=== PATIENT | male | born 1960 | race Caucasian/White ===

== ENCOUNTER 2020-06-07 11:27 | Outpatient (CLI) | payer OTHER, SELFPAY ==
--- NOTE | ~2020-06-07 | XR_ITS ---
XR abdomen/kub 1V DATE: 06/07/2020 11:43 INDICATION: R19.8 Other specified symptoms and signs involving the digestive tract TECHNIQUE: 2 AP views COMPARISON: None FINDINGS: There is no evidence of bowel obstruction. No visceromegaly. No significant abnormal calcif ication. The psoas shadows are intact. No suspicious osteolytic or osteoblastic lesions are noted. Th e lower lung zones are clear. IMPRESSION: No significant abnormality Reviewed, dictated and finalized at [facility]. Reviewed, dictated and finalized at location B. IMPRESSION: No significant abnormality
== END 2020-06-07 11:28 | disposition home or self-care (01) ==
PROVIDERS: PCP Internal Medicine; Visit Provider Internal Medicine
DX: R19.8 Other specified symptoms and signs involving the digestive system and abdomen (principal)
CPT/HCPCS: 74018

== ENCOUNTER → 2021-06-12 14:25 | Outpatient (CLI) | payer OTHER, SELFPAY ==
--- NOTE | ~2021-06-12 | XR_ITS ---
XR foot RT min 3V DATE: 06/12/2021 14:45 INDICATION: Plantar fascial fibromatosis TECHNIQUE: 4 views COMPARISON: 11/09/2016 MR right foot FINDINGS: Mild plantar calcaneal enthesopathy. There is mild osteoarthritic arthritis at the first metatarsophalangeal joint. No fracture, dislocation, periosteal reaction or bone destruction is detected. IMPRESSION: Mild plantar calcaneal enthesopathy Mild osteoarthritis at first metatarsophalangeal joint Reviewed, dictated and finalized at location A.
--- NOTE | ~2021-06-12 | XR_ITS ---
XR foot LT min 3V DATE: 06/12/2021 14:44 INDICATION: Plantar fascial fibromatosis TECHNIQUE: 4 views COMPARISON: None FINDINGS: Plantar calcaneal enthesopathy. Second through fifth hammertoe deformities. There is mild osteoarthritis at the first metatarsophalangeal joint. No fracture, dislocation, periosteal reaction or bone destruction. IMPRESSION: Plantar calcaneal enthesopathy Mild osteoarthritis at first metatarsophalangeal joint Reviewed, dictated and finalized at location A.
== END ==
PROVIDERS: PCP Internal Medicine; Visit Provider Internal Medicine
DX: M19.071 Primary osteoarthritis, right ankle and foot (principal); M77.31 Calcaneal spur, right foot; M72.2 Plantar fascial fibromatosis
CPT/HCPCS: 73630

== ENCOUNTER 2022-02-12 09:39 | Observation (INO) | payer OTHER, SELFPAY ==
[2022-02-12] VITALS (24 sets, daily range): BP systolic 102–141; BP diastolic 58–83; PULSE 77–95; RESP 8–22; TEMP 36.2–36.9; O2SAT 98–100; BMI 33.0
[2022-02-12 10:02] LABS: Basophils Percent Auto 0.3 % (0.2-1.2); Eosinophils Percent Auto 0.1 % (0-4.4); Hemoglobin 8.4 g/dL (14.0-18.0); Immature Granulocyte Absolute 0.06 K/mm3 (0.00-0.031); Immature Granulocyte Percent A 0.5 % (0-0.5); Lymphocytes Percent Auto 17.2 % (18.3-44.2); Mean Corpuscular HGB Conc 32.3 g/dl (32-36); Mean Corpuscular Hemoglobin 32.1 pg (26-34); Mean Corpuscular Volume 99.2 fl (80-100); Mean Platelet Volume 9.5 fl (7.4-10.4); Monocytes Absolute Auto 0.9 K/mm3 (0.1-0.6); Monocytes Percent Auto 7.3 % (2.6-8.5); Neutrophils Absolute Auto 8.7 K/mm3 (1.3-6.7); Neutrophils Percent Auto 74.6 % (45.5-73.1); Platelet Count Result 276 k/mm3 (150-375); Red Blood Count 2.62 M/mm3 (4.6-6.20); Red Cell Distribution Width 16.1 % (11.5-14.5); White Blood Count 11.6 K/mm3 (4.5-10.0)
--- NOTE | 2022-02-12 10:03 | ECG_ITS ---
Measurements Intervals [place] Rate: 82 P: 71 CO: 182 QRS: -33 QRSD: 99 T: 19 QT: 357 QTc: 418 Interpretive Statements SINUS RHYTHM WITH OCCASIONAL VENTRICULAR PREMATURE COMPLEXES MARKED LEFT AXIS DEVIATION [QRS AXIS < -30] PATTERN CONSISTENT WITH PULMONARY DISEASE NONSPECIFIC T-WAVE ABNORMALITY NO PREVIOUS ECG AVAILABLE FOR COMPARISON Electronically Signed On 02-12-2022 14:01:45 CDT by Meghan Bower M.D.
--- NOTE | 2022-02-12 10:04 | ED.GIBLEED ---
HPI - GI Bleed General Chief complaint: GI Bleed Stated complaint: Black stools Time Seen by Provider: 02/12/22 09:54 Source: patient Mode of arrival: ambulatory Limitations: no limitations History of Present Illness HPI Narrative: This is a 61-year-old male that presents to the emergency department for black, tarry stools present over the last 5 days. Does report some epigastric abdominal pain that is like a pressure. He has been experiencing this for years. The pain is worse after eating. Reports a presyncopal type episode at work last night. Denies fever, vomiting, chest pain, or shortness of breath. Related Data Home Medications Medication Instructions Recorded Confirmed aspirin 81 mg tablet,delayed 81 mg PO DAILY 11/20/19 12/09/21 release Allergies Allergy/AdvReac Type Severity Reaction Status Date / Time No Known Drug Allergies Allergy Unknown Unknown Verified 12/09/21 14:14 Review of Systems Review of Systems: CONSTITUTIONAL: Denies fever CARDIOVASCULAR: Denies chest pain RESPIRATORY: Denies dyspnea. GASTROINTESTINAL: Reports abdominal pain. Denies nausea, vomiting, or diarrhea. All systems reviewed & are unremarkable except as noted in HPI and below PMFSH Past Medical History Medical History (Updated 02/12/22 @ 12:25 by Ayleen Toro PA-C) BMI 32.0-32.9,adult Enuresis Essential hypertension High intra-abdominal pressure Hyperlipidemia LDL goal <130 Insomnia Itch of skin Screen for colon cancer Surgical History Surgical History History of rotator cuff surgery Family History Family History Other Heart disease Social History Social History Smoking status: Never smoker Second hand tobacco smoke exposure: No Alcohol intake: current Exam Narrative: GENERAL: Well-appearing, well-nourished, and in no acute distress. HEAD: Normocephalic, atraumatic. EYES: EOMI. CHEST: Clear to auscultation. No respiratory distress. No wheezes rales or rhonchi HEART: Regular rate and rhythm. No murmur heard. Normal peripheral pulses. ABDOMEN: Soft, nondistended, normal active bowel sounds. Mild tenderness to palpation in epigastrium, without guarding EXTREMITIES: Normal range of motion. No edema. SKIN: Warm, dry, no rash. NEURO: No focal deficits. Alert and oriented x3. PSYCH: Normal mood and affect RECTAL: Normal appearing rectum without hemorrhoids or fissures. Hemoccult positive Course Consultations Consultation #1: Spoke with Dr. Ruelas about patient and work-up who will consult Date: 02/12/22 Consultation #2: Spoke with Dr. Rushing who accepts admission Date: 02/12/22 Vital Signs Vital signs: Vital Signs Temperature 98.5 F 02/12/22 09:43 Pulse Rate 94 02/12/22 09:43 Respiratory Rate 18 02/12/22 09:43 Blood Pressure 141/83 H 02/12/22 09:43 Pulse Oximetry 99 02/12/22 09:43 Temperature 98.5 F 02/12/22 09:43 Pulse Rate 84 02/12/22 11:01 Respiratory Rate 8 L 02/12/22 11:01 Blood Pressure 114/73 02/12/22 11:01 Pulse Oximetry 99 02/12/22 09:43 MDM - GI Bleed MDM Narrative Medical decision making narrative: Patient presents to the emergency department for black stools ongoing over the last 5 days. Also reports intermittent epigastric pain ongoing over the last couple years. He is afebrile and nontoxic-appearing. His vitals are stable. CBC with mild leukocytosis to 11.6. Also shows normocytic anemia with hemoglobin of 8.4. Metabolic panel with some evidence of dehydration. Patient hydrated with IV fluids in the ED. EKG without acute ST changes and baseline troponin is negative. He is Hemoccult positive. Given a dose of Protonix in the ED. Will be admitted for further evaluation and management of GI bleed. Spoke with Dr. Ruelas about patient and work-up who will consult. Spoke with darius
[2022-02-12 10:09] LABS: INR 1.1; Prothrombin Time 13.8 Seconds (11.1-14.7)
[2022-02-12 10:10] LABS: Partial Thromboplastin Time 26.5 SECONDS (22.3-36.8)
[2022-02-12 10:11] LABS: Lipase 77 U/L (23-300)
[2022-02-12] MEDS: PANTOPRAZOLE SODIUM IV 40 MG VIAL IV PUSH (10:15)
[2022-02-12 10:23] LABS: Alanine Aminotransferase 19 U/L (4-50); Albumin Level 3.4 g/dL (3.5-5.1); Alkaline Phosphatase 43 U/L (38-126); Anion Gap 6 mmol/L (8-16); Aspartate Amino Transferase 22 U/L (17-59); Bilirubin,Total 0.2 mg/dL (0.2-1.3); Blood Urea Nitrogen 51 mg/dL (9-20); Carbon Dioxide 23 mmol/L (22-30); Chloride 106 mmol/L (98-107); Estimated CRCL calculation 75 ml/min; Estimated Glomerular Filt Rate > 60; Glucose 115 mg/dL (65-110); Potassium 3.9 mmol/L (3.4-5.0); Sodium 135 mmol/L (137-145)
[2022-02-12 10:35] LABS: Troponin I < 0.012 ng/mL (0.000-0.034)
[2022-02-12] MEDS: SODIUM CHLORIDE 0.9% IV 500 ML 999 ML IV CONT (10:37)
--- NOTE | 2022-02-12 13:23 | WPDGICN ---
Assessment and Plan Assessment and plan (1) Melena: Code(s): K92.1 - Melena Status: Acute Assessment and Plan: Patient with melenic stools for 5 days. Confirmed to be Hemoccult-positive consistent with upper GI bleeding. Lower GI bleeding not excluded. Plan for colonoscopy an EGD to evaluate more thoroughly. Elective screening colonoscopy was planned anyway and we will proceed with this in the morning. We will treat patient empirically for possible ulcer disease pending these tests. (2) Anemia due to blood loss: Code(s): D50.0 - Iron deficiency anemia secondary to blood loss (chronic) Status: Acute Assessment and Plan: Decline in hemoglobin to 8.5. Appears that this is from GI bleeding over the last week. Plan is to treat for ulcer disease monitor hemoglobin transfuse if necessary. (3) Screen for colon cancer: Code(s): Z12.11 - Encounter for screening for malignant neoplasm of colon Status: Acute Assessment and Plan: Patient was scheduled for screening colonoscopy in next week. Because of his GI bleeding we will plan to proceed with this at this time. GI Consult Note Consult date/time: 02/12/22 13:23 HPI: Philip Fortune is a 61 year old male I am asked to see at the request of the emergency room. Patient reports that for the last 5 days he has had dark black stools. Yesterday work became very weak. He called his family doctor was sent to the emergency room where he is found to have a low hemoglobin of 8.4. Stool was confirmed to be Hemoccult-positive. Patient has had some degree of epigastric pain off and on for several years. He reports having a screening colonoscopy 2009 that was unremarkable. He anticipates screening colonoscopy within the next several weeks however not yet accomplished. Patient denies any prior history of ulcers. He has had no recent fevers. No recent travel. Does not take in excess of medications. Review of Systems Review of Systems: All systems reviewed & are unremarkable except as noted in HPI and below PMFSH Past Medical History Medical History (Updated 02/12/22 @ 13:25 by Elliot Ruelas MD) BMI 32.0-32.9,adult Enuresis Essential hypertension High intra-abdominal pressure Hyperlipidemia LDL goal <130 Insomnia Itch of skin Screen for colon cancer Surgical History Surgical History History of rotator cuff surgery Family History Family History Other Heart disease Social History Social History Smoking status: Never smoker Second hand tobacco smoke exposure: No Alcohol intake: current Meds Home Medications and Allergies Home Medications Medication Instructions Recorded Confirmed Type aspirin 81 mg tablet,delayed 81 mg PO DAILY 11/20/19 12/09/21 History release amlodipine 10 mg tablet See Rx Instructions .ROUTE 11/17/21 12/09/21 Rx .COMPLEX #90 tablet simvastatin 20 mg tablet See Rx Instructions .ROUTE 11/17/21 12/09/21 Rx .COMPLEX #90 tablet diclofenac sodium 1 % topical gel 2 g TOPICAL QID #100 g 12/25/21 Rx Allergies Allergy/AdvReac Type Severity Reaction Status Date / Time No Known Drug Allergies Allergy Unknown Unknown Verified 12/09/21 14:14 Vital Signs Vital Signs - 24 hr 02/12/22 09:43 02/12/22 09:44 02/12/22 09:45 Temperature 98.5 F Pulse Rate 94 94 95 Respiratory Rate 18 14 22 H Blood Pressure 141/83 H Pulse Oximetry 99 02/12/22 09:46 02/12/22 09:47 02/12/22 10:00 Temperature Pulse Rate 91 91 88 Respiratory Rate 18 12 22 H Blood Pressure 141/83 H Pulse Oximetry 02/12/22 10:01 02/12/22 10:15 02/12/22 10:30 Temperature Pulse Rate 86 88 89 Respiratory Rate 21 H 17 22 H Blood Pressure 129/83 Pulse Oximetry 02/12/22 10:40 02/12/22 10:41 02/12/22 10:42 [place]
--- NOTE | 2022-02-12 14:00 | PM.IMHP ---
H&P: HPI History of Present Illness Date/Time: 02/12/22 14:00 Chief Complaint: Dark stools. Narrative: This is a 61-year-old male with hypertension and hyperlipidemia who presented to the emergency department for evaluation of dark stools. He typically has 1 bowel movement a day however he has had several malodorous, dark, tarry stools over the past 5 days. His appetite has also been diminished though he has not had overt nausea or vomiting. With further questioning he reports intermittent indigestion for which he will take Tums though that has not been much of an issue recently. Over the last couple of months he has also noticed fullness, bloating, and a pressure-like discomfort in the epigastrium following heavier meals. Yesterday while at work he had a near syncopal episode, becoming extremely lightheaded and dizzy when bending over to chicken picker an object off the floor but he feels better in that regard. On arrival to the emergency department today is hemoglobin was 8.4, down 6 g when compared to labs drawn on 12/20/2021. His stool was noted to be Hemoccult positive and he is being admitted in this setting for further evaluation. He is resting comfortably the time my evaluation and has no other complaints. He has never had similar symptoms in the past. He does take a baby aspirin daily and maybe 3 times a week he will take 1 naproxen for chronic pain in her his feet due to stress fractures. No significant caffeine or alcohol use. Review of Systems Review of Systems: Twelve systems were reviewed. No fever, chills, or sweats. No recent cold or flu symptoms. He denies sick contacts. Weight has remained stable. No chest pain, palpitations, or shortness of breath. Except as documented, all other systems were reviewed and are negative. [facility] Past Medical History Medical History (Updated 02/12/22 @ 22:51 by Jana Castrejon PA-C) Essential hypertension Hyperlipidemia LDL goal <130 Insomnia Surgical History Surgical History (Updated 02/12/22 @ 14:05 by Jana Castrejon PA-C) History of colonoscopy with polypectomy (10/2010) History of repair of right rotator cuff (08/2012) Family History Family History Other Heart disease Social History Social History (Updated 02/12/22 @ 22:49 by Jana Castrejon PA-C) Social History: Surrogate decision maker: Rupal Fortune, spouse. Code status: Full code. Smoking status: Never smoker Second hand tobacco smoke exposure: No Alcohol intake: current Drinks per week: 3 Substance use type: does not use Additional living arrangements comments: Resides in [place] with his . 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 Spiritual care concerns: Yes (Baptism) Meds Home Medications and Allergies Home Medications Medication Instructions Recorded Confirmed Type aspirin 81 mg tablet,delayed 81 mg PO DAILY 11/20/19 02/12/22 History release diclofenac sodium 1 % topical gel 2 g TOPICAL QID #100 g 12/25/21 02/12/22 Rx amlodipine 10 mg PO HS 02/12/22 02/12/22 History naproxen sodium 220 mg PO Q8H PRN 02/12/22 02/12/22 History simvastatin 20 mg PO HS 02/12/22 02/12/22 History Allergies Allergy/AdvReac Type Severity Reaction Status Date / Time No Known Drug Allergies Allergy Unknown Unknown Verified 12/09/21 14:14 Vital Signs Vital Signs - 24 hr 02/12/22 09:43 02/12/22 09:44 02/12/22 09:45 Temperature 98.5 F Pulse Rate 94 94 95 Respiratory Rate 18 14 22 H Blood Pressure 141/83 H Pulse Oximetry 99 02/12/22 09:46 02/12/22 09:47 02/12/22 10:00 Temperature Pulse Rate 91 91 88 Respiratory Rate 18 12 22 H Blood Pressure 141/83 H Pulse Oximetry 02/12/22 10:01 02/12/22 10:15 02/12/22 10:30 Temperature Pulse Rate 86 88 89 Respiratory Rate 21 H 17 22 H Blood Pressure 129/83 Pulse Oximetry 02/12/22 10:40 02/12/22 10:41 02/12/22
[2022-02-12 14:20] LABS: Hematocrit 22.6 % (42.0-52.0); Hemoglobin 7.5 g/dL (14.0-18.0)
[2022-02-12] MEDS: PEG (High)/E-LYTE SOLN 4,000 ML BTL 4000 ML PO (14:53)
[2022-02-12 20:29] LABS: Hematocrit 21.2 % (42.0-52.0)
[2022-02-12 20:33] LABS: Hemoglobin 6.9 g/dL (14.0-18.0)
[2022-02-12] MEDS: SODIUM CHLORIDE 0.9% IV 250 ML 30 ML IV CONT (21:34)
[2022-02-13] VITALS (8 sets, daily range): BP systolic 98–132; BP diastolic 53–86; PULSE 66–77; RESP 14–22; TEMP 35.9–36.6; O2SAT 96–100
[2022-02-13 04:20] LABS: Hematocrit 24.9 % (42.0-52.0); Hemoglobin 8.2 g/dL (14.0-18.0); Mean Corpuscular HGB Conc 32.9 g/dl (32-36); Mean Corpuscular Hemoglobin 31.4 pg (26-34); Mean Corpuscular Volume 95.4 fl (80-100); Mean Platelet Volume 9.2 fl (7.4-10.4); Platelet Count Result 216 k/mm3 (150-375); Red Blood Count 2.61 M/mm3 (4.6-6.20); Red Cell Distribution Width 16.5 % (11.5-14.5); White Blood Count 6.1 K/mm3 (4.5-10.0)
[2022-02-13 05:23] LABS: Anion Gap 3 mmol/L (8-16); Blood Urea Nitrogen 20 mg/dL (9-20); Calcium 7.3 mg/dL (8.4-10.2); Carbon Dioxide 25 mmol/L (22-30); Chloride 109 mmol/L (98-107); Estimated CRCL calculation 99 ml/min; Estimated Glomerular Filt Rate > 60; Glucose 98 mg/dL (65-110); Potassium 3.3 mmol/L (3.4-5.0); Sodium 137 mmol/L (137-145)
--- NOTE | 2022-02-13 07:25 | PC.NURSE ---
Patient had an order for 2 units of RBC over the night. After receiving one unit, Hgb went from 6.[address] Wade was called in and new result of hbg was reported. Second unit of RBC was ordered to be held by Dr. Wade after an improve in Hbg.
--- NOTE | 2022-02-13 10:29 | PM.IMPN ---
Progress Note: A&P Assessment and Plan (1) GI bleed: Qualifiers: GI bleed type/associated pathology: unspecified gastrointestinal hemorrhage type Qualified Code(s): K92.2 - Gastrointestinal hemorrhage, unspecified Code(s): K92.2 - Gastrointestinal hemorrhage, unspecified Status: Acute (2) Anemia due to blood loss: Code(s): D50.0 - Iron deficiency anemia secondary to blood loss (chronic) Status: Acute (3) Acute GI bleeding: Code(s): K92.2 - Gastrointestinal hemorrhage, unspecified Status: Acute (4) Melena: Code(s): K92.1 - Melena Status: Acute Additional Plan # acute GI bleed, melena -patient uses aspirin and naproxen so he is at risk for gastric ulcers -patient is due for colonoscopy, previous history of polyps -melena for last 5 days likely slow bleed -will transfuse if hemoglobin less than 7, continue monitoring hemoglobin -plan for EGD colonoscopy today with Dr. Ruelas # other chronic conditions-holding nonessential meds for the endoscopy -essential hypertension: Amlodipine -hyperlipidemia: Simvastatin -osteoarthritis: Holding Naproxen, Voltaren gel Diet: NPO for EGD colonoscopy DVT prophylaxis: SCDs Code status: Full code Disposition: EGD colonoscopy today likely home in 1 or 2 days Time Spent With Patient Time with patient: 15 - 25 minutes Subjective Date/time seen: 02/13/22 10:29 Patient seen examined. He is doing well no new complaints, no overnight events. Yesterday had bowel prep for colonoscopy today and EGD by Dr. Ruelas for workup of his melena. Likely upper GI bleed from aspirin and NSAID use, patient on Protonix b.i.d. IV. Patient states his bowel prep yesterday was clear stool then started turning dark. Patient may still have ongoing bleeding which will continue monitoring. He denies fever, chills, nausea vomiting, chest pain, abdominal pain. Review of Systems Review of Systems: All systems reviewed & are unremarkable except as noted in HPI and below Exam Narrative: - GENERAL: Pleasant male in no acute distress. well nourished - EYES: EOMI. Anicteric. - HENT: Moist mucous membranes. - LUNGS: Clear to auscultation bilaterally, no wheezing, rhonchi, or rales. - CARDIOVASCULAR: Regular rate and rhythm. No murmur. No JVD. - ABDOMEN: Soft, non-tender and non-distended. No palpable masses. - EXTREMITIES: No edema. Peripheral pulses 2+. Non-tender. - NEUROLOGIC: No focal neurological deficits. CN II-XII grossly intact. - PSYCHIATRIC: Awake, Alert and oriented x 3. Appropriate mood and affect. - SKIN: No rashes or lesions. Warm. - LYMPH: No cervical lymphadenopathy. Objective Data Vital Signs Vital Signs: Vital Signs - 24 hr 02/12/22 10:30 02/12/22 10:40 02/12/22 10:41 Temperature Pulse Rate 89 85 83 Respiratory Rate 22 H 15 15 Blood Pressure 128/70 117/78 Pulse Oximetry 02/12/22 10:42 02/12/22 10:45 02/12/22 11:00 Temperature Pulse Rate 82 83 80 Respiratory Rate 12 20 12 Blood Pressure 111/77 Pulse Oximetry 02/12/22 11:01 02/12/22 11:02 02/12/22 12:00 Temperature 36.8 C Pulse Rate 84 82 82 Respiratory Rate 8 L 13 16 Blood Pressure 114/73 114/72 Pulse Oximetry 98 02/12/22 13:04 02/12/22 13:39 02/12/22 20:00 Temperature 36.2 C L Pulse Rate 78 77 81 Respiratory Rate 16 16 16 Blood Pressure 116/72 122/71 Pulse Oximetry 98 99 99 02/12/22 21:17 02/12/22 22:14 02/12/22 22:34 Temperature 36.4 C 36.4 C 36.4 C Pulse Rate 81 84 82 Respiratory Rate 16 18 16 Blood Pressure 121/61 108/65 103/61 Pulse Oximetry 99 100 98 02/12/22 23:34 02/13/22 00:34 02/13/22 04:19 Temperature 36.5 C 36.6 C 36.4 C Pulse Rate 84 77 76 Respiratory Rate 16 16 18 Blood Pressure 102/58 L 112/65 106/70 Pulse Oximetry 100 100 98 02/13/22 05:43 Temperature 36.6 C Pulse Rate 72 Respiratory Rate 18 Blood Pressure 123/74 Pulse Oximetry 100 Intake/Output Intake/Output: Intake & Output 02/10
[2022-02-13] MEDS: KCL 20 MEQ/SW 100 ML 100 ML 50 MEQ IVPB (11:03)
--- NOTE | 2022-02-13 11:15 | PCCCNOTE ---
On 02/13/22, the student, [Nicole Koenig ], provided care and completed [facility] documentation on this patient. I have reviewed the student's documentation and agree with the findings.
--- NOTE | 2022-02-13 12:06 | PC.NURSE ---
patient to gi lab per w/cJulia zambrano stopped for procedure
[2022-02-13] MEDS: LACTATED RINGERS 1,000 ML 150 ML IV CONT (12:19)
--- NOTE | 2022-02-13 12:52 | WPDANESEPPF ---
Anes - Initial Pre Proc Eval Procedure: Operation Date: 02/13/22 12:30 Proposed Procedures p Esophagogastroduodenoscopy & Colonoscopy - Elliot Ruelas MD Date/Time: 02/13/22 12:52 Surgeon: rBi Rushing MD Pre Op Diagnosis: GI Bleed, Anemia Patient Data Age: 61 Gender: M Height: 1.57 m Weight: 83 kg Last Vital Signs Temp 36.6 C 02/13/22 12:18 Pulse 66 02/13/22 12:18 Resp 18 02/13/22 12:18 BP 131/67 02/13/22 12:18 Pulse Ox 100 02/13/22 12:18 Allergies Allergy/AdvReac Type Severity Reaction Status Date / Time No Known Drug Allergies Allergy Unknown Unknown Verified 02/13/22 12:16 Home Medications Medication Instructions Recorded Confirmed Type aspirin 81 mg tablet,delayed 81 mg PO DAILY 11/20/19 02/12/22 History release diclofenac sodium 1 % topical gel 2 g TOPICAL QID #100 g 12/25/21 02/12/22 Rx amlodipine 10 mg PO HS 02/12/22 02/12/22 History naproxen sodium 220 mg PO Q8H PRN 02/12/22 02/12/22 History simvastatin 20 mg PO HS 02/12/22 02/12/22 History Laboratory Tests 02/12/22 02/12/22 02/12/22 09:51 13:45 20:19 WBC RBC Hgb 7.5 g/dL L g/dL 6.9 g/dL L* g/dL (14.0-18.0) (14.0-18.0) Hct 22.6 % L % 21.2 % L % (42.0-52.0) (42.0-52.0) MCV MCH MCHC RDW Plt Count MPV Sodium Potassium Chloride Carbon Dioxide Anion Gap BUN Creatinine Estim Creat Clear Calc Estimated GFR Glucose Calcium Magnesium Blood Type A Positive Antibody Screen Negative Crossmatch See Detail 02/13/22 02/13/22 03:59 03:59 WBC 6.1 K/mm3 K/mm3 (4.5-10.0) RBC 2.61 M/mm3 L M/mm3 (4.6-6.20) Hgb 8.2 g/dL L g/dL (14.0-18.0) Hct 24.9 % L % (42.0-52.0) MCV 95.4 fl fl (80-100) MCH 31.4 pg pg (26-34) MCHC 32.9 g/dl g/dl (32-36) RDW 16.5 % H % (11.5-14.5) Plt Count 216 k/mm3 k/mm3 (150-375) MPV 9.2 fl fl (7.4-10.4) Sodium 137 mmol/L mmol/L (137-145) Potassium 3.3 mmol/L L mmol/L (3.4-5.0) Chloride 109 mmol/L H mmol/L (98-107) Carbon Dioxide 25 mmol/L mmol/L (22-30) Anion Gap 3 mmol/L L mmol/L (8-16) BUN 20 mg/dL D mg/dL (9-20) Creatinine 0.60 mg/dL L mg/dL (0.7-1.3) Estim Creat Clear Calc 99 ml/min ml/min Estimated GFR > 60 (59 - ) Glucose 98 mg/dL mg/dL (65-110) Calcium 7.3 mg/dL L mg/dL (8.4-10.2) Magnesium 2.0 mg/dL mg/dL (1.6-2.3) Blood Type Antibody Screen Crossmatch Patient hx anesthesia problems: none Family hx anesthesia problems: none Results Review: All pre-operative results and documents have been reviewed as part of the pre-operative evaluation. [facility] Past Medical History Medical History Essential hypertension Hyperlipidemia LDL goal <130 Insomnia Surgical History Surgical History History of colonoscopy with polypectomy (10/2010) History of repair of right rotator cuff (08/2012) Family History Family History Other Heart disease Social History Social History Social History: Surrogate decision maker: Rupal Fortune, spouse. Code status: Full code. Smoking status: Never smoker Second hand tobacco smoke exposure: No Alcohol intake: current Drinks per week: 3 Substance use type: does not use Additional living arrangements comments: Resides in [place] with his . Additional occupation/education comments: Maintenance at a
[2022-02-13] MEDS: SIMETHICONE ORAL SUSPENSION 20 MG/0.3 ML 30 ML BOTTLE 0.6 ML PO (13:18)
--- NOTE | 2022-02-13 13:23 | SUR.OPER ---
Addendum entered by Alia Pabon RN 02/13/22 13:23: EGD start 1300 end 1306, COLON start 1313 end 1323 Original Note: EGD start 1300
--- NOTE | 2022-02-13 13:57 | PC.NURSE ---
patient returning to room from GI lab
[2022-02-13 14:20] LABS: Hematocrit 26.2 % (42.0-52.0); Hemoglobin 8.6 g/dL (14.0-18.0)
--- NOTE | 2022-02-13 15:09 | PM.DS ---
DS: Admitting Diagnosis Discharge Date 02/13/22 Admitting Diagnosis GI bleeding, anemia due to blood loss DS: Discharge Diagnosis Discharge Diagnosis (1) GI bleed: Qualifiers: GI bleed type/associated pathology: unspecified gastrointestinal hemorrhage type Qualified Code(s): K92.2 - Gastrointestinal hemorrhage, unspecified Code(s): K92.2 - Gastrointestinal hemorrhage, unspecified Status: Acute (2) Barretts esophagus: Code(s): K22.70 - Yuan's esophagus without dysplasia Status: Acute (3) Internal hemorrhoids: Code(s): K64.8 - Other hemorrhoids Status: Acute (4) Esophageal ulcer with bleeding: Code(s): K22.11 - Ulcer of esophagus with bleeding Status: Acute (5) Esophagitis: Code(s): K20.90 - Esophagitis, unspecified without bleeding Status: Acute DS: Summary Hospital Course Reason for hospitalization: GI bleeding Hospital Course: Patient is a 61-year-old male past medical history of hypertension hyperlipidemia presents to the ED with complaints of melena. Patient was planned to have an outpatient colonoscopy next week and ways. Patient underwent bowel prep and EGD colonoscopy on 02/13/2022. Colonoscopy showed no polyps only internal hemorrhoids with recommendation for 10 year follow-up colonoscopy for cancer screening. EGD showed esophagitis, esophageal ulcers that were not actively bleeding, Yuan's esophagus with findings concerning for malignancy. Biopsies were taken and patient needs a follow-up in [address] Ruelas to call for biopsy results. He will need 6 week follow-up EGD to evaluate for any changes in the ulcers are healing. Recommendations are for b.i.d. Protonix until then. I advised patient to avoid NSAIDs will stop aspirin and Aleve, Rx for Protonix given. He has been advised to maintain a bland anti-reflux diet minimizing alcohol, caffeine, acidic foods, spicy foods. He will follow-up with PCP in 1 week. His hemoglobin has been stable around 8.6. At time of discharge patient's vitals are stable, labs stable, patient is stable for discharge home. Patient understands and agrees with plan. Status at Discharge Cognitive/behavioral status at discharge: At baseline Functional status at discharge: independent ambulation Overall status at discharge: patient is back to baseline Time Spent with Patient Time attestation: Total time spent providing and/or coordinating discharge services:35 Time spent: Greater than 30 minutes Exam Narrative: - GENERAL: Pleasant male in no acute distress. well nourished - EYES: EOMI. Anicteric. - HENT: Moist mucous membranes. - LUNGS: Clear to auscultation bilaterally, no wheezing, rhonchi, or rales. - CARDIOVASCULAR: Regular rate and rhythm. No murmur. No JVD. - ABDOMEN: Soft, non-tender and non-distended. No palpable masses. - EXTREMITIES: No edema. Peripheral pulses 2+. Non-tender. - NEUROLOGIC: No focal neurological deficits. CN II-XII grossly intact. - PSYCHIATRIC: Awake, Alert and oriented x 3. Appropriate mood and affect. - SKIN: No rashes or lesions. Warm. - LYMPH: No cervical lymphadenopathy. DS: Data Data Completed and Pending Pending studies at discharge: Pending at discharge 02/13/22 13:25 Surgical [PTH] Routine Labs on day of discharge: Labs from last 24 hours 02/13/22 02/13/22 02/13/22 14:08 03:59 03:59 WBC 6.1 RBC 2.61 L Hgb 8.6 L 8.2 L Hct 26.2 L 24.9 L MCV 95.4 MCH 31.4 MCHC 32.9 RDW 16.5 H Plt Count 216 MPV 9.2 Sodium 137 Potassium 3.3 L Chloride 109 H Carbon Dioxide 25 Anion Gap 3 L BUN 20 D Creatinine 0.60 L Estim Creat Clear Calc 99 Estimated GFR > 60 Glucose 98 Calcium 7.3 L Magnesium 2.0 Blood Type Antibody Screen Crossmatch 02/12/22 02/12/22 20:19 09:51 WBC RBC Hgb 6.9 L* Hct 21.2 L MCV MCH MCHC RDW Plt Count MPV Sodium Potassium Ch
== END 2022-02-13 15:57 | disposition home or self-care (01) ==
LOC: ANHED 12:25 → ANH3MEDSUR 13:54
PROVIDERS: Internal Medicine Gastroenterology; Physician Assistant; Admitting Provider Family Medicine; Emergency Provider Emergency Medicine; PCP Family Medicine; Visit Provider Student in an Organized Health Care Education/Training Program
PROC: 0DJ08ZZ Inspection of Upper Intestinal Tract, Via Natural or Artificial Opening Endoscopic (ICD-10-PCS; CPT 43235; principal; 2022-02-13 12:30)
DX: C15.5 Malignant neoplasm of lower third of esophagus (principal); K92.2 Gastrointestinal hemorrhage, unspecified; K92.1 Melena; Z12.11 Encounter for screening for malignant neoplasm of colon; K64.8 Other hemorrhoids; D50.0 Iron deficiency anemia secondary to blood loss (chronic); I10 Essential (primary) hypertension; E78.5 Hyperlipidemia, unspecified; M19.90 Unspecified osteoarthritis, unspecified site; Z86.010 Personal history of colon polyps; Z79.82 Long term (current) use of aspirin; Z79.1 Long term (current) use of non-steroidal anti-inflammatories (NSAID)
CPT/HCPCS: 45378; 43239; 36415; 36430; 80048; 80053; 83690; 83735; 84484; 85014; 85018; 85025; 85027; 85610; 85730; 86850; 86900; 86901; 86920; 88305; 88342; 93005; 96361; 96365; 96374; 99285; A9270; C9113; G0378; J2704; J3480; J7040; J7050; J7120; P9016

== ENCOUNTER 2023-07-01 09:45 | Emergency (ER) | payer OTHER, SELFPAY ==
[2023-07-01] VITALS (10 sets, daily range): BP systolic 104–157; BP diastolic 62–92; PULSE 51–65; RESP 14–20; TEMP 36.6; O2SAT 96–100
--- NOTE | ~2023-07-01 | XR_ITS ---
Clinical Indication: Chest pain PA and lateral views of the chest: Comparison: 01/02/2008 Findings: The lungs are clear, without evidence of focal consolidation or pleural effusion. Cardiome diastinal silhouette is within normal limits. Bones and soft tissues are unremarkable. Impression: Normal chest. Reviewed, dictated and finalized at location . Impression: Normal chest.
--- NOTE | 2023-07-01 09:49 | ECG_ITS ---
Measurements Intervals [place] Rate: 55 P: 73 W[place]: 193 QRS: -43 QRSD: 105 T: -1 QT: 389 QTc: 372 Interpretive Statements SINUS BRADYCARDIA MARKED LEFT AXIS DEVIATION [QRS AXIS < -30] COMPARED TO ECG 02/12/2022 10:27:02 SINUS BRADYCARDIA NOW PRESENT Electronically Signed On 07-01-2023 10:19:46 CDT by Meghan Bower M.D.
--- NOTE | 2023-07-01 10:27 | ED.CHESTPAIN ---
HPI - Chest Pain General Chief Complaint: Chest Pain Stated Complaint: chest pain Time Seen by Provider: 07/01/23 10:00 Source: patient Mode of arrival: ambulatory Limitations: no limitations History of Present Illness HPI narrative: This is a 62 year old male that presents to the ER for episodes of chest pain. Ongoing over the last month. Reports he wakes up with left upper chest pain. It is sharp in nature. It is relieved without intervention. He had an episode today and called his primary doctor. He was prompted to be seen here. Denies fever, cough, shortness of breath, vomiting, or lower extremity edema. Related Data Allergies Allergy/AdvReac Type Severity Reaction Status Date / Time No Known Drug Allergies Allergy Unknown Unknown Verified 07/01/23 09:55 Review of Systems Review of Systems: CONSTITUTIONAL: Denies fever CARDIOVASCULAR: Reports chest pain. Denies palpitations, or edema. RESPIRATORY: Denies cough or dyspnea. All systems reviewed & are unremarkable except as noted in HPI and below PMFSH Past Medical History Medical History (Updated 07/01/23 @ 13:13 by Ayleen Toro PA-C) BMI 26.0-26.9,adult BMI 28.0-28.9,adult Essential hypertension Hyperlipidemia LDL goal <130 Insomnia Surgical History Surgical History History of colonoscopy with polypectomy (10/2010) History of repair of right rotator cuff (08/2012) Family History Family History Other Heart disease Social History Social History Social History: Surrogate decision maker: Rupal Fortune, spouse. Code status: Full code. Smoking status: Never smoker Second hand tobacco smoke exposure: No Alcohol intake: current Drinks per week: 3 Substance use type: does not use Additional living arrangements comments: Resides in [place] with his . 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 Spiritual care concerns: Yes (Jain) Exam Narrative: GENERAL: Well-appearing, well-nourished, and in no acute distress. HEAD: Normocephalic, atraumatic. EYES: EOMI. NECK: Supple. No JVD CHEST: Clear to auscultation. No respiratory distress. No wheezes rales or rhonchi HEART: Regular rate and rhythm. No murmur heard. Normal peripheral pulses. EXTREMITIES: Normal range of motion. No edema. SKIN: Warm, dry, no rash. NEURO: No focal deficits. Alert and oriented x3. PSYCH: Normal mood and affect Course Course Emergency Course: Patient updated on work-up and agrees with plan of care Vital Signs Vital signs: Vital Signs Temperature 98 F 07/01/23 09:50 Pulse Rate 58 L 07/01/23 09:50 Respiratory Rate 16 07/01/23 09:50 Blood Pressure 157/92 H 07/01/23 09:50 Pulse Oximetry 96 07/01/23 09:50 Oxygen Delivery Room Air 07/01/23 09:50 Temperature 98 F 07/01/23 09:50 Pulse Rate 57 L 07/01/23 13:00 Respiratory Rate 16 07/01/23 13:00 Blood Pressure 122/66 07/01/23 13:00 Pulse Oximetry 98 07/01/23 13:00 Oxygen Delivery Room Air 07/01/23 09:58 MDM - Chest Pain MDM Narrative Medical decision making narrative: Patient presents to the emergency department for episodes of chest pain that have been ongoing over the last month. Pain is in the left upper chest that he reports it as sharp in nature. It is not exertional. It is relieved without intervention. Patient's vitals are stable. CBC and metabolic panel without concerning findings. EKG without acute ST changes and baseline and 3-hour troponin are negative. Chest x-ray without acute cardiopulmonary abnormality. His heart score is a 2. Instructed to have close follow-up with his primary provider. He was given warnings to return to the ER Repeat EKG was done by RN as patient intermittently is in [place]. He does not seem to be symptomatic wi
[2023-07-01 10:28] LABS: Basophils Percent Auto 0.4 % (0.2-1.2); Eosinophils Percent Auto 0.8 % (0-4.4); Hematocrit 41.5 % (42.0-52.0); Immature Granulocyte Absolute 0.01 K/mm3 (0.00-0.031); Immature Granulocyte Percent A 0.2 % (0-0.5); Lymphocytes Absolute Auto 0.98 K/mm3 (0.9-3.2); Lymphocytes Percent Auto 19.5 % (18.3-44.2); Mean Corpuscular HGB Conc 33.7 g/dl (32-36); Mean Corpuscular Hemoglobin 33.2 pg (26-34); Mean Corpuscular Volume 98.3 fl (80-100); Mean Platelet Volume 9.1 fl (7.4-10.4); Monocytes Absolute Auto 0.5 K/mm3 (0.1-0.6); Monocytes Percent Auto 9.5 % (2.6-8.5); Neutrophils Absolute Auto 3.5 K/mm3 (1.3-6.7); Neutrophils Percent Auto 69.6 % (45.5-73.1); Platelet Count Result 251 k/mm3 (150-375); Red Blood Count 4.22 M/mm3 (4.6-6.20); Red Cell Distribution Width 14.3 % (11.5-14.5)
[2023-07-01 10:29] LABS: Alanine Aminotransferase 25 U/L (6-50); Albumin Level 4.1 g/dL (3.5-5.1); Alkaline Phosphatase 45 U/L (38-126); Anion Gap 8 mmol/L (8-16); Aspartate Amino Transferase 23 U/L (17-59); Bilirubin,Total 0.5 mg/dL (0.2-1.3); Blood Urea Nitrogen 23 mg/dL (9-20); Calcium 8.7 mg/dL (8.4-10.2); Carbon Dioxide 25 mmol/L (22-30); Chloride 104 mmol/L (98-107); Estimated CRCL calculation 82 ml/min; Estimated Glomerular Filt Rate > 60; Glucose 106 mg/dL (65-110); INR 0.9; Lipase 48 U/L (23-300); Potassium 4.1 mmol/L (3.4-5.0); Prothrombin Time 12.5 Seconds (11.1-14.7); Sodium 137 mmol/L (137-145)
[2023-07-01 10:34] LABS: Partial Thromboplastin Time 30.4 SECONDS (22.3-36.8)
[2023-07-01 10:41] LABS: Troponin I < 0.012 ng/mL (0.000-0.034)
--- NOTE | 2023-07-01 11:58 | ECG_ITS ---
Measurements Intervals [place] Rate: 62 P: 88 [place]: 182 QRS: -43 QRSD: 96 T: -3 QT: 407 QTc: 414 Interpretive Statements SINUS RHYTHM WITH FREQUENT VENTRICULAR PREMATURE COMPLEXES IN A BIGEMINAL PATTERN LEFT ANTERIOR SUPERIOR HEMIBLOCK ABNORMAL ECG COMPARED TO ECG 07/01/2023 09:58:20 VENTRICULAR BIGEMINY IS NOW PRESENT Electronically Signed On 07-02-2023 12:45:24 CDT by Forrest Brock M.D.
--- NOTE | 2023-07-01 12:05 | PC.NURSE ---
While looking at pt's monitor, RN notices changes. Orders placed for a repeat EKG. Pt denies any chest pain at this time.
[2023-07-01 13:08] LABS: Troponin I < 0.012 ng/mL (0.000-0.034)
== END 2023-07-01 14:11 | disposition home or self-care (01) ==
PROVIDERS: General Practice; Emergency Provider Physician Assistant; PCP Family Medicine
DX: R07.9 Chest pain, unspecified (principal); I10 Essential (primary) hypertension
CPT/HCPCS: 36415; 71046; 80053; 83690; 84484; 85025; 85610; 85730; 93005; 99284

== ENCOUNTER 2023-09-23 14:25 | Outpatient (CLI) | payer OTHER, SELFPAY ==
--- NOTE | ~2023-09-23 | MR_ITS ---
EXAMINATION: MR brain/brain stem wo con DATE: 09/23/2023 15:04 INDICATION: Other amnesia. TECHNIQUE: Magnetic resonance imaging (MRI) of the brain and brainstem was performed without intraven ous contrast. COMPARISON: None. FINDINGS: There are foci of increased T2-weighted signal intensity in the bilateral parietal deep whi te matter, which is normal for the patient's age. There is no intracranial hemorrhage, acute infarcti on, or abnormal intracranial mass lesion. The ventricles are normal in size. There is mucosal thicken ing in the paranasal sinuses. The orbits are normal. There are trace mastoid effusions. IMPRESSION: 1. Normal brain. Reviewed, dictated and finalized at location E. IMPRESSION: 1. Normal brain.
== END 2023-09-23 14:26 | disposition home or self-care (01) ==
PROVIDERS: PCP Family Medicine; Visit Provider Family Medicine
DX: R41.3 Other amnesia (principal)
CPT/HCPCS: 70551

== ENCOUNTER 2024-09-06 10:07 | Outpatient (CLI) | payer MEDICARE, SELFPAY ==
--- NOTE | ~2024-09-06 | XR_ITS ---
AP and lateral views of the left hip Clinical history: Pain Findings: No acute fracture or dislocation is seen. Osseous alignment is anatomic. Left hip joint is intact. Soft tissues are unremarkable. Impression: No significant abnormality is seen. Reviewed, dictated and finalized at location M. Impression: No significant abnormality is seen.
--- NOTE | ~2024-09-06 | XR_ITS ---
Lumbosacral Spine: AP and lateral views Clinical History: Pain Findings: There are probably 6 lumbar type vertebral bodies. No fracture evident. Probable minimal gr hiram 1 anterolisthesis of L6 over S1. There is moderate facet arthropathy at the lower half of the lum bar spine. There are minimal degenerative disc changes in the lumbar spine. The sacroiliac joints ar e normally outlined. Impression: Moderate facet arthropathy, especially the lower lumbar spine. Apparently 6 lumbar type vertebral bodies present. Reviewed, dictated and finalized at location M. Impression: Moderate facet arthropathy, especially the lower lumbar spine. Apparently 6 lumbar type vertebral bodies present.
== END 2024-09-06 10:08 | disposition home or self-care (01) ==
LOC: MICIMG 10:09
PROVIDERS: PCP Family Medicine; Visit Provider Nurse Practitioner Adult Health
DX: M47.817 Spondylosis without myelopathy or radiculopathy, lumbosacral region (principal)
CPT/HCPCS: 72100; 73502

== ENCOUNTER 2025-10-31 15:07 | Outpatient (CLI) | payer MEDICARE, SELFPAY ==
--- NOTE | ~2025-10-31 | XR_ITS ---
XR lumbar spine 2-3V Indication: M79.10 - Myalgia; CENTRAL TSPINE LSPINE PAIN WHEN SITTING Comparison: None Findings: The vertebral heights are intact. No fracture or subluxation. The disc heights are intact. Soft tissues unremarkable Impression: No acute abnormality. Reviewed, dictated and finalized at location P. ANALYST Impression: No acute abnormality.
--- NOTE | ~2025-10-31 | XR_ITS ---
XR thoracic spine 2V Indication: M79.10 - Myalgia,CENTRAL TSPINE LSPINE PAIN WHEN SITTING Comparison: None Findings: Moderate loss of vertebral height throughout. No fracture or subluxation. Moderate disc loss of disc height throughout. Soft tissues unremarkable Impression: No acute abnormality. Reviewed, dictated and finalized at location P. TH AND FITNESS PROFESSOR Impression: No acute abnormality.
== END 2025-10-31 15:08 | disposition home or self-care (01) ==
LOC: MICIMG 15:08
PROVIDERS: PCP Family Medicine; Visit Provider Nurse Practitioner Adult Health
DX: M79.10 Myalgia, unspecified site (principal); M54.50 Low back pain, unspecified
CPT/HCPCS: 72070; 72100